=== PATIENT | male | born 1970 | race African-American/Black ===

== ENCOUNTER 2021-05-04 09:33 | Emergency (ER) | payer MEDICAID ==
[~2021-05-04] VITALS: Ht 177.8 cm; Wt 102.0 kg
[2021-05-04] MEDS ORDERED: KETOROLAC 60MG/2ML VIAL IM STA (09:53)
[2021-05-04 10:02] VITALS: BP 145/89
[2021-05-04 10:16] LABS: CLARITY URINE CLEAR (CLEAR); COLOR URINE YELLOW (YELLOW); KETONES URINE NEGATIVE (NEGATIVE); LEUKOCYTE ESTERASE URINE NEGATIVE (NEGATIVE); NITRITE URINE NEGATIVE (NEGATIVE); OCCULT BLOOD URINE NEGATIVE (NEGATIVE); PROTEIN URINE NEGATIVE (NEGATIVE); SPECIFIC GRAVITY URINE 1.023 (1.005-1.030)
[2021-05-04] MEDS ORDERED: IBUP-2029 MT (11:06)
[2021-05-04] MEDS ORDERED: METH-653 MT (11:06)
== END 2021-05-04 11:12 | disposition home or self-care (01) ==
LOC: ER 09:33
DX: M54.89 Other dorsalgia (principal); M79.18 Myalgia, other site; R53.83 Other fatigue; I10 Essential (primary) hypertension
CPT/HCPCS: 81003; 96372; 99283; J1885